=== PATIENT | female | born 1950 | race Caucasian/White ===

== ENCOUNTER 2017-07-28 17:00 | Emergency (ER) | payer MEDICARE, OTHER, MEDICAID ==
[~2017-07-28] VITALS: Ht 165.1 cm; Wt 75.0 kg
[~2017-07-28 17:00] MED LIST: NORCO 325 MG-101 TAB PO; NORCO 325 MG-51 TAB PO; ULTRAM 50MG TAB50 MG PO
[2017-07-28 17:04] VITALS: TEMP 97.2
[2017-07-28] MEDS ORDERED: PRINIVIL40 MG PO (17:36)
[2017-07-28] MEDS ORDERED: METHOTREXA2.5 MG/TAB PO (17:36)
[2017-07-28] MEDS ORDERED: FOLIC ACID800 MCG PO (17:36)
[2017-07-28] MEDS ORDERED: ZOCOR 20MG20 MG PO (17:36)
[2017-07-28] MEDS ORDERED: ADVIL200 MG PO (17:36)
[2017-07-28 17:54] LABS: COLLECTION METHOD CLEAN CATCH
[2017-07-28 17:55] LABS: BASO % 0.2 % (0.0-2.0); EOS # 0.1 (0.0-0.7); EOS % 0.4 % (0-4.0); GRAN # 12.7 (1.4-6.5); HEMATOCRIT 48.1 % (37.0-47.0); HEMOGLOBIN 16.4 g/dl (12.5-16.0); LYMPH # 1.6 (1.2-3.4); LYMPH % 10.1 % (20.0-51.0); MEAN CELL VOLUME 91 fl (80.0-100.0); MEAN CORPUSCULAR HEMOGLOBIN 31 pg (27.0-31.0); MEAN CORPUSCULAR HGB CONC 34 g/dl (33.0-37.0); MEAN PLATELET VOLUME 10.8 fl (7.4-10.4); MONO # 1.1 (0.1-0.6); PLATELET COUNT 322 K/mm3 (130-400); RED BLOOD COUNT 5.27 M/mm3 (4.10-5.30); REDCELL DISTRIBUTION WIDTH-CV 15.1 % (11.5-14.5)
[2017-07-28 18:10] LABS: MUCOUS Present /lpf; PH 5 (5-8); SQUAMOUS EPITHELIAL >50 /hpf; URINE APPEARANCE Turbid; URINE BACTERIA Many /hpf; URINE BILIRUBIN Negative (NEGATIVE); URINE BLOOD 1+ (NEGATIVE); URINE COLOR Yellow; URINE GLUCOSE Negative (NEGATIVE); URINE KETONE Trace (NEGATIVE); URINE LEUKOCYTE ESTERASE 2+ (NEGATIVE); URINE NITRATE Positive (NEGATIVE); URINE PROTEIN(semi-quant) 2+ (NEGATIVE)
[2017-07-28 18:13] LABS: ALANINE AMINOTRANSFERASE 20 U/L (9-52); ALBUMIN 4.4 gm/dL (3.5-5.0); ALKALINE PHOSPHATASE 129 U/L (50-136); ANION GAP 18 mmol/L (7-16); AST,SGOT 22 U/L (15-37); BILIRUBIN,TOTAL 0.9 mg/dL (0.0-1.0); BLOOD UREA NITROGEN 24 mg/dL (7-17); C-REACTIVE PROTEIN 6.9 mg/dL (0.0-0.9); CARBON DIOXIDE 20 mmol/L (22-30); CHLORIDE 105 mmol/L (98-107); GLUCOSE 177 mg/dL (74-106); POTASSIUM 4.3 mmol/L (3.4-5.0); SODIUM 143 mmol/L (137-145); TOTAL PROTEIN 9.5 gm/dL (6.4-8.2)
[2017-07-28 18:23] LABS: TROPONIN-I < 0.012 ng/mL (0.000-0.034)
[2017-07-28] MEDS ORDERED: OMNICEF 300MG300 MG PO (18:39)
[2017-07-28 18:57] VITALS: BP 130/107; PULSE 132
== END 2017-07-28 19:02 | disposition home or self-care (01) ==
LOC: COL.ER 17:00
PROVIDERS: Emergency Medicine
DX: N12 Tubulo-interstitial nephritis, not specified as acute or chronic (principal); N39.0 Urinary tract infection, site not specified; M54.5 Low back pain; M06.9 Rheumatoid arthritis, unspecified; F17.210 Nicotine dependence, cigarettes, uncomplicated
CPT/HCPCS: J0696; J1170

== ENCOUNTER 2019-06-23 10:37 | Inpatient (IN) | payer MEDICARE, OTHER ==
[~2019-06-23] VITALS: Ht 167.6 cm; Wt 54.5 kg
[~2019-06-23 10:37] MED LIST changes: +ADVIL200 MG PO; +FOLIC ACID800 MCG PO; +INCRUSE EL62.5 MCG/A IH; +IPRATROPIUM BROM3 M1 IH; +LEVAQUIN 5500 MG/TA1 PO; +LOVENOX 6060 MG/0.6 SQ; +METHOTREXA2.5 MG/TAB PO; +OMNICEF 300MG300 MG PO; +PRINIVIL40 MG PO; +RT ADVAIR HFA 1112 G IH; +TYLENOL 325MG325 MG PO; +ZOCOR 20MG20 MG PO
[2019-06-23 12:33] LABS: TROPONIN-I < 0.012 ng/mL (0.000-0.035)
[2019-06-23 14:01] LABS: BASO % 0.2 % (0.0-2.0); EOS % 0.3 % (0-4.0); GRAN # 7.8 (1.4-6.5); HEMATOCRIT 42.8 % (37.0-47.0); HEMOGLOBIN 13.2 g/dl (12.5-16.0); LYMPH # 0.7 (1.2-3.4); LYMPH % 7.6 % (20.0-51.0); MEAN CELL VOLUME 87 fl (80.0-100.0); MEAN CORPUSCULAR HEMOGLOBIN 27 pg (27.0-31.0); MEAN CORPUSCULAR HGB CONC 31 g/dl (33.0-37.0); MEAN PLATELET VOLUME 10.2 fl (7.4-10.4); MONO # 0.5 (0.1-0.6); MONO % 5.3 % (1.7-9.3); PLATELET COUNT 172 K/mm3 (130-400); RED BLOOD COUNT 4.92 M/mm3 (4.10-5.30); REDCELL DISTRIBUTION WIDTH-CV 20.2 % (11.5-14.5)
[2019-06-23 14:15] LABS: ALBUMIN 3.5 gm/dL (3.5-5.0); BILIRUBIN,TOTAL 0.6 mg/dL (0.0-1.0); C-REACTIVE PROTEIN 3.7 mg/dL (0.0-0.9); CREATININE, serum 0.43 (0.52-1.25); POTASSIUM 5.1 mmol/L (3.4-5.0)
--- NOTE | 2019-06-23 15:59 | NUR ---
tray line worker met with Dr Brooks and patient's nurse in the emergency room. Patient requires screening to determine competency/guardianship. Patient was recently hospitalized and transferred to [facility] for skilled care. On 06/22/2019, patient left [facility]. Worker spoke with Javy and also with Brigitte Pearson (APS [phone]) and advised that patient will be admitted and assessed by pyschiatrist on 06/24/2019 for guardianship need. Worker spoke with Nancy in Risk management regarding the above information. Worker spoke with Festus Anne [phone] regarding the above information. Festus states that patient has for sons and hasn't spoken to them in 25/30 years. Festus states they do not know were the sons are at this time. Festus states that he would be guardian if patient requires that and has tried to help patient pay her bills and clean up her home. Festus states that he found a package of raw chicken (that was 4 months old) on the floor in patient's living room. Festus states that patient's memory has deteriorated rapidly over the last year and that she was hoarding snack and canned foods. Worker spoke with Dr Scott's social economist, Rani, and advised of the above information.
[2019-06-23 17:23] LABS: PROTHROMBIN TIME 12.1 SECONDS (9.7-12.8)
--- NOTE | 2019-06-23 19:49 | NUR ---
patient is alert with mild confusion and incontinent at arrival to the floor. patient progress to be lethargic and [id number]. patient is currently on 2L Of O2. patient not able to answer most questions related to medication or past history. patient is currently resting in bed. ASSESSMENT coarse crackle lung sound, pulse lips when breathing. Heart rhythm is irregular. right ankle edema at 2+, left leg edema at 2+. patient complained of tiredness. patient is on high fall risk. Fall precautions in place. bed alarm on.
--- NOTE | 2019-06-23 20:00 | NUR ---
At time of assessment, patient is lying in bed. She moans and complains of "pain all over". Tylenol administered. Heart sounds are irregular, lung sounds are coarse. Patient is on 2L oxygen at this time. No edema. Will continue to monitor.
[2019-06-23 20:52] VITALS: BP 127/63; PULSE 89; TEMP 97.5
[2019-06-24 00:15] VITALS: BP 132/69; PULSE 93; TEMP 97.4
--- NOTE | 2019-06-24 05:52 | NUR ---
Patient has slept throughout the majority of the night. She complained of pain "all over" at beginning of shift and Tylenol seemed to help this issue. She woke up once in the middle of the night saying she was hungry and requested chocolate ice cream. Today we are waiting for placement and possible guardianship from social work consult. No further concerns. Will continue to monitor.
[2019-06-24 07:22] VITALS: BP 121/67; PULSE 99; TEMP 97.6
[2019-06-24 08:49] LABS: BASO % 0.3 % (0.0-2.0); EOS # 0.1 (0.0-0.7); EOS % 1.9 % (0-4.0); GRAN % 81.3 % (42.2-75.2); HEMATOCRIT 39.9 % (37.0-47.0); LYMPH # 0.7 (1.2-3.4); LYMPH % 11.2 % (20.0-51.0); MEAN CELL VOLUME 87 fl (80.0-100.0); MEAN CORPUSCULAR HEMOGLOBIN 26 pg (27.0-31.0); MEAN CORPUSCULAR HGB CONC 30 g/dl (33.0-37.0); MEAN PLATELET VOLUME 10.3 fl (7.4-10.4); MONO # 0.3 (0.1-0.6); PLATELET COUNT 168 K/mm3 (130-400); RED BLOOD COUNT 4.58 M/mm3 (4.10-5.30); REDCELL DISTRIBUTION WIDTH-CV 19.9 % (11.5-14.5)
[2019-06-24 09:17] LABS: CALCIUM 8.8 mg/dL (8.4-10.2); CREATININE, serum 0.42 (0.52-1.25); POTASSIUM 4.6 mmol/L (3.4-5.0)
--- NOTE | 2019-06-24 10:17 | NUR ---
Pt assessment completed and charted, medications administered per MAY. Pt is sitting in bed, alert, partially oriented. Pt has LH IV w/ NS @75ml/hr running w/o complications. PT to be on 1.5-2L NC, pt needs reminder to put NC in, pt refusing at time of assessment. Breathing is even and unlabored at this time. LLE edema 1-2+ and Lt foot edema 2-3+, some warmth noted. Irritation and scabs present to LLE. Rt foot 1-2+ edema noted. Pt states she is hungry, no diet order in at this time, will discuss with hospitalist. No furthe needs at this time.
--- NOTE | 2019-06-24 11:07 | NUR ---
First visit from the department store manager. No needs right now.
[2019-06-24 12:03] VITALS: BP 116/64; PULSE 92; TEMP 97.5
--- NOTE | 2019-06-24 13:33 | NUR ---
RA SPO2 82% PLACED BCK ON 2 LPM NC 90% RN NOTIFIED
[2019-06-24 16:11] VITALS: BP 124/69; PULSE 96; TEMP 97.7
--- NOTE | 2019-06-24 16:30 | NUR ---
Vocational Nurse faxed referrals to [facility], [facility], [facility], and [facility]. SW spoke with Kimberly at [facility] who advised they only have one bed available at this time. SW to continue to follow.
--- NOTE | 2019-06-24 16:34 | NUR ---
Architectural Associate collaborated with Rosa, Financial Counselor about Medicaid Jarrod for patient. SW to continue to follow.
--- NOTE | 2019-06-24 17:02 | NUR ---
Pt states she is hungry, offered snacks until dinner arrives. Pt has moaned most of the day but can't describe or rate pain. When asked what's wrong, pt states she is "miserable". Throughout day pt has denied the need for pain medication. Pt then stated she "hurt all over", tylenol was offered, pt accepted. Pt on room air, satting low 90s. Pt checked by RT earlier this afternoon, found in upper 80s, NC placed back on and sats brought up to low 90s. Pt constantly takes NC off. Discussed w/ pt about keeping on NC.
--- NOTE | 2019-06-24 17:40 | NUR ---
Pt assisted to bathroom, pt called out "help". Pt reminded to use call light. Upon returning back to bed, pt stated she was "couldn't breathe". Educated pt on keeping NC in, O2 checked, pt was satting at 88%, quickly recovered to 91% on 2L NC.
--- NOTE | 2019-06-24 19:00 | NUR ---
Received report from Dawn. Seen patient awake, lying on bed. With IV on left wrist infusing NS at 75ml/hr. Patient refuses to wear her oxygen and states she doesn't need it. SPO2 at 93% room air. Bed alarm on. Call light within reach.
[2019-06-24 19:05] VITALS: BP 116/50; PULSE 85; TEMP 98
--- NOTE | 2019-06-24 19:45 | NUR ---
Patient states she is hungry and said that she didn't receive her tray even if she had it awhile ago. Camillus box was given and she was able to eat most of it. She says she has pain all over and this nurse tells her she can have the Tylenol at 2030H and she agreed. She is oriented to place, year but not the current date right now. She knows when is her birthday.
[2019-06-24 22:58] VITALS: BP 130/66; PULSE 99; TEMP 97.8
[2019-06-25 03:09] VITALS: BP 122/45; PULSE 85; TEMP 98.3
--- NOTE | 2019-06-25 06:18 | NUR ---
Patient would wake up and scream she needs help. Upon going inside she would say she needs to go the the restroom to urinate. This nurse instructed her a couple times to use the call light is she needs something and she would say okay but she wouldn't do it. She keeps on saying she feels horrible. She had pain last night and she would say it's all over her body. Tylenol PRN was given. Will endorse to day shift nurse.
[2019-06-25 07:09] VITALS: BP 134/69; PULSE 100; TEMP 97.4
--- NOTE | 2019-06-25 10:36 | NUR ---
Station Worker faxed referrals to [facility] [place] and [place]. SW spoke with patient's friend, Festus who reports he is still willing to be appointed patient's guardian. Festus reports patient owns the trailer she lives in and an old truck. Festus estimated she receives about $2,100 per month in social security. SW to continue to follow.
[2019-06-25 11:44] VITALS: BP 128/65; PULSE 100; TEMP 97.8
--- NOTE | 2019-06-25 12:15 | NUR ---
Tele called, pt HR increased to 130s, this nurse checked on pt, pt sitting in bed eating lunch, denies any needs at this time. HR back down to low 100s.
--- NOTE | 2019-06-25 12:17 | NUR ---
Pt VS verified, pt satting at 89 on room air. Pt not wearing her O2. Pt educated again on importance of wearing O2. Pt needs constant reminder to keep O2 on and she repeatedly removes it. Will continue to monitor.
--- NOTE | 2019-06-25 14:55 | NUR ---
JUANITO faxed updates to [facility], [facility], and [facility].
--- NOTE | 2019-06-25 15:25 | NUR ---
Pt assessment completed and charted and medications administered per MAY. Pt is alert, partially oriented. Pt tolerating foods ok. Pt has needed multiple reminders to put O2 back on. Pt drops to high 80s but recovers quickly on 2L NC. Pt also needs reminders and education on using call lights repeatedly, pt verbalizes understanding but then just yells out. Pt also puts side rails down on her own. Bed alarm on, fall risk precautions in place. IVF dc'd, pt has LWR IV that flushes w/o difficulty. LLE edema 2+, Lt foot edema 3+. Pt moans that she "hurts all over" but then states she "is ok" and refuses anything for pain. Pt has been assisted to bathrooom multiple times, gait is fairly steady using walker. No other concerns expressed.
[2019-06-25 15:46] VITALS: BP 132/51; PULSE 93; TEMP 97.4
--- NOTE | 2019-06-25 16:07 | NUR ---
Javy, at [facility], reports that they have declined the patient, due to her leaving AMA her last stay.
--- NOTE | 2019-06-25 19:00 | NUR ---
Received report from Obinna. Seen patient asleep, lying in bed. With INT on left wrist. On O2 at 2lpm via NC. Will continue to monitor.
[2019-06-25 19:17] VITALS: BP 127/58; PULSE 93; TEMP 98.4
[2019-06-25 23:45] VITALS: BP 133/54; PULSE 88; TEMP 98.7
[2019-06-26] VITALS (7 sets, daily range): BP systolic 112–143; BP diastolic 47–86; PULSE 94–112; TEMP 97.5–98.7
--- NOTE | 2019-06-26 01:25 | NUR ---
Noted to have some bleeding on the IV site. Tried flushing the INT but there's no backflow and patient complains of pain. Removed INT. Explained to patient that this nurse needs to insert another IV access but patient refuses. She kept on hiding her hands and says she doesn't need another IV. Informed VETERINARIAN POULTRY Anitha that patient refuses for IV access.
--- NOTE | 2019-06-26 05:35 | NUR ---
Patient had an uneventful night. She was aleep most of the night. She just asked for a sandwich in the middle of the night when her IV was out. Will endorse to day shift nurse.
[2019-06-26 06:55] LABS: BASO % 0.3 % (0.0-2.0); EOS # 0.1 (0.0-0.7); EOS % 1.6 % (0-4.0); GRAN # 5.1 (1.4-6.5); GRAN % 74.2 % (42.2-75.2); HEMATOCRIT 40.3 % (37.0-47.0); HEMOGLOBIN 12.3 g/dl (12.5-16.0); LYMPH # 1.2 (1.2-3.4); LYMPH % 17.6 % (20.0-51.0); MEAN CELL VOLUME 88 fl (80.0-100.0); MEAN CORPUSCULAR HEMOGLOBIN 27 pg (27.0-31.0); MEAN CORPUSCULAR HGB CONC 31 g/dl (33.0-37.0); MEAN PLATELET VOLUME 10.1 fl (7.4-10.4); MONO # 0.4 (0.1-0.6); MONO % 5.9 % (1.7-9.3); PLATELET COUNT 201 K/mm3 (130-400); REDCELL DISTRIBUTION WIDTH-CV 19.6 % (11.5-14.5)
[2019-06-26 07:03] LABS: CALCIUM 8.9 mg/dL (8.4-10.2); CREATININE, serum 0.5 (0.52-1.25); POTASSIUM 4.5 mmol/L (3.4-5.0)
--- NOTE | 2019-06-26 07:25 | NUR ---
On 06/25/2019, social worker assistant spoke with [place] associate attorney, Brandon Ayala, and advised of current situation and need for emergency guardian for placement. Will plan to complete questionnaire and collaborate with attorneys.
--- NOTE | 2019-06-26 08:34 | NUR ---
PT REFUSED [place]
--- NOTE | 2019-06-26 08:36 | NUR ---
[facility], [facility], and [facility] declined referral at this time. SW to continue to follow.
--- NOTE | 2019-06-26 09:04 | NUR ---
Pt assessment completed and charted. medication administered per MAY. Pt is A&O, impulsive. Pt has bed alarm on and fall precautions in place but pt will lower side rail and get up on own w/o using call light. Pt educated on use of call light and waiting for help. Pt O2 sats upper 80s this morning. Pt didn't have NC on, educated on need to keep O2 on. Pt was agreeable but needs constant reminder and education. Pt is on 2L NC. Pt doesn't not have IV access, IV removed last night and pt refused. Will attempt to gain IV access today, pt does not receive IV meds but is on tele. Pt has LLE 2-3+ edema and rt ankle 1+ edema. Pt denies any pain but states she is miserable, denies need for any pain medication.
--- NOTE | 2019-06-26 12:42 | NUR ---
Supervisor Inspection Department spoke with JUANITO Mcghee at [facility] who advised they are required to have a negative COVID19 test prior to admit. JUANITO advised that a test would not be done as patient is not under suspect for COVID19. JUANITO collaborated with Rosa, Financial Counselor who advised a Medicaid application had been started last year but patient did not follow through with providing medical documents. Rosa advised she may need to wait until Guardian is established to complete new Medicaid application. JUANITO completed Guardianship Questionnaire with information gathered from hospital records and patient's friend, Festus. JUANITO to continue to follow.
--- NOTE | 2019-06-26 13:36 | NUR ---
neon sign worker sent guardianship questionnaire to attorneys, [place] and [place].
--- NOTE | 2019-06-26 14:00 | NUR ---
Pt to have Ct w/ contrast, new IV site needed and started to RAC by JORGE Barrett flushhanna w/o difficulty and blood return noted. No further needs. Pt requesting lunch, provided with sandwich box at this time.
--- NOTE | 2019-06-26 16:03 | NUR ---
President & Ceo [employer] contacted and faxed referral to [facility], [facility], and [facility]. JUANITO also faxed referral to [facility] in [place] and left a message for Amy. JUANITO SOLOMON to continue to follow.
--- NOTE | 2019-06-26 16:04 | NUR ---
SW obtained Physician Report form from Hospitalist required for Guardianship and provided it along with patient's Psychiatry Consult to Nancy Peng, Drier Transfer Car Operator.
--- NOTE | 2019-06-26 16:21 | NUR ---
Pt assisted to bathroom, refuses to press call light. Bed alarm on. Pt not wearing her O2. VSS obtained, pt satting at 85%, quickly recovered to mid 90s with O2 on. Pt states she is "miserable" but "nothing hurts". Denies need for any pain medication. Pt also states she is hungry, provided with snacks. No further needs at this time. Call light within reach and bed alarm on.
--- NOTE | 2019-06-26 17:40 | NUR ---
Pt found without O2 on, educated patient on wearing O2 again. O2 placed back on. No further needs.
--- NOTE | 2019-06-26 18:30 | NUR ---
PT REPORT RECEIVED FROM SATISH RN AT BEDSIDE. PT IS RESTING IN BED WITH CALL LIGHT WITHIN REACH. WILL CONTINUE TO MONITOR.
--- NOTE | 2019-06-26 21:29 | NUR ---
Pt is noted to be getting out of bed with bed alarm sounding. Pt educated on using call light to notify staff of her needs to reduce thwerisk of falls and injury. Pt seems to disregard the education provided. Bed alarm on. Will continue to monitor.
--- NOTE | 2019-06-26 22:38 | NUR ---
PATIENT REFUSED TREATMENT
--- NOTE | 2019-06-27 03:23 | NUR ---
Pt has had increased restfulness during the latter part of the shift and Charge Nurse Shanique PATEL was able to get Pt to take PRN APAP earlier which may have helped reduce PT restlessness and verbal pain sounds. Pt alternates between resting with her eyes open and closed with no s/s of distress noted. Pt continues to have call light within reach. New order received from Dr Resendiz for 2mg Morphine IV One Time and to save this PRN dose until Pt pain has exacerbated to an appropriate level based upon this typewriters functional tester's nursing assessment- otherwise continue to use APAP when available. Will continue to monitor.
[2019-06-27 03:48] VITALS: BP 127/67; PULSE 101; TEMP 98.4
--- NOTE | 2019-06-27 05:59 | NUR ---
Pt was assisted to restroom and is currently back in bed resting peacefully with no s/s of distress noted. Call light within reach. Will continue to monitor. Pt has not needed the new order for Morphine 2mg IV One Time PRN since the order was received earlier in the shift.
[2019-06-27 07:27] VITALS: BP 109/56; PULSE 98; TEMP 97.6
[2019-06-27 11:37] VITALS: BP 111/68; PULSE 104; TEMP 97.5
--- NOTE | 2019-06-27 14:51 | NUR ---
PT C/O FEELING HORRIBLE AND AND ACHEY, THIS NURSE PROVIDED PT WITH SOME TYLENOL, PT REFUSED TO TAKE IT. HAS HAD A FEW BM'S TODAY AND REFUSED HER MIRALX AND COLACE THIS AM.
[2019-06-27 16:02] VITALS: BP 117/59; PULSE 104; TEMP 98.1
--- NOTE | 2019-06-27 16:22 | NUR ---
PT FINALLY DID TAKE SOME TYLENOL THIS AFTERNOON. WILL MONITOR FOR EFFECTIVENESS
[2019-06-27 19:14] VITALS: BP 116/60; PULSE 98; TEMP 98.6
--- NOTE | 2019-06-27 20:25 | NUR ---
Patient assessed at this time. Alert and oriented with confusion. Reports pain all over, but refusing to take Acetaminophen as ordered, stating she doesn't need it. Peripheral IV to right AC. Patient on oxygen at 2 L/min via NC. Does not keep oxygen on, and staff have to reeducate and assist with putting oxygen back on. Patient continues to take it off saying she doesn't need it. Patient has labored breathing with any exertion. Respirations shallow. LS CTA in upper lobes, diminished in lower. HRR. Telemetry in place: sinus tachycardia. Capillary refill less than 3 seconds. Non-tenting skin turgor. BSAx4. Abdomen soft and non-tender. 2+ edema LLE and left foot. Voices no questions, needs or concerns. States she is tired and wants to sleep. Call light is within reach. High fall risk precautions in place.
--- NOTE | 2019-06-27 21:43 | NUR ---
Patient continueing to yell out saying she is hurting. This nurse went and talked with patient. Patient stated she would take Acetaminophen. Given to patient, but then refused to take it. This nurse stayed and talked with patient for a while. She stated she was miserable. Asked why she was miserable, and stated that she is hurting all over. Again, offered to give her the Acetaminophen, and told her that it was at least worth a try to see if it helps. Patient then agreeable, and did take medication.
[2019-06-27 23:53] VITALS: BP 121/44; PULSE 86; TEMP 98.7
[2019-06-28 04:16] VITALS: BP 130/49; PULSE 89; TEMP 98.1
--- NOTE | 2019-06-28 05:09 | NUR ---
Patient received PRN APAP around 2139 last night. Has slept more tonight than previous night. Does continue to yell out on occasion, "oh my god," "I'm miserable," etc. Tried to encourage to take more APAP, but refuses to take it, saying "its not bad." Patient given snacks as requested during the night. Patient keeps taking oxygen off as well, and needs lots of encouragement to keep it on. High fall risk precautions remain in place.
[2019-06-28 07:51] VITALS: BP 133/63; PULSE 106; TEMP 97.7
[2019-06-28 12:40] VITALS: BP 130/57; PULSE 106; TEMP 98
[2019-06-28 16:45] VITALS: BP 121/56; PULSE 101; TEMP 97.4
--- NOTE | 2019-06-28 18:40 | NUR ---
Pt report received from Carli PATEL/Tita RN at bedside. Pt is resting in bed with eyes closed and no s/s of distress noted. Call light is at Pt side. Will continue to monitor.
[2019-06-28 20:17] VITALS: BP 117/52; PULSE 96; TEMP 97.8
--- NOTE | 2019-06-28 21:21 | NUR ---
Pt pulled out her IV line again. This service writer contacted Lolita WAYNE and received order to Discontinue IV. Will continue to monitor.
--- NOTE | 2019-06-28 23:05 | NUR ---
Pt set bed alarm off and was fouind in the restroom sitting on the toilet. Pt states that she had to immediately void and could not wait for assistance. Pt reports that her brief is wet. This keno writer/runner assists Pt with cleaning herself up and provided new clean brief, assisted Pt back to bed and resets the bed alarm. Pt remains in stable condition at this time with continued complaints regarding how she doesn't feel good. Pt educated that there is PRN APAP available and Pt agrees that she would take some APAP as soon as it can be given. MAR verified and APAP will be given per MAR. Call light within reach. Will continue to monitor.
--- NOTE | 2019-06-28 23:12 | NUR ---
Pt provided PRN APAP and this greeting card writer verified that Pt would take the pills if they were popped from packaging. Pt now states "no" and "leave me alone" even after edcuation regarding how this medication can help relieve or reduce her pain and discomfort. Pt replies "leave me alone". Meds [facility] to [facility]. Call light within reach. Will continue to monitor.
[2019-06-28 23:52] VITALS: BP 126/70; PULSE 97; TEMP 97.7
--- NOTE | 2019-06-28 23:55 | NUR ---
Pt refuses to wear her O2 per NC
--- NOTE | 2019-06-29 01:53 | NUR ---
Pt has once again transferred out of bed without using call light and triggering bed alarm. Pt presents at bedside and states she needs to use the restroom. This board writer assists Pt with toileting needs and then assists Pt back to bed. Pt once again reducated on her fall risk secondary to pain, weakness, and altered gait, and that she needs to use the call light so staff can assist her to the restroom safely. Pt is ambivalent about the education and appears to not even be paying attention. Pt is moaning and making statements about pain but consistently refuses the pain medication that she has ordered PRN. Call light at Pt side and bed alarm reset. Will continue to monitor.
[2019-06-29 04:16] VITALS: BP 152/56; PULSE 115; TEMP 98.8
--- NOTE | 2019-06-29 04:31 | NUR ---
Pt woke up and called out in pain as this medical technical writer was preparing to go to her room for VS and rounds. Pt assisted to restroom by estivensi medical technical writer after VS taken. Pt states "it hurts" numerous times and makes pain sounds but when reminded that she has PRN pain medication available she once again refuses the medication. Pt assisted back to bed and repositioned into a comfortable position. Just prior to Pt waking up biologist aide notified this medical technical writer that Pt HR was elevated in the 110-120's. Pt is possibly tachycardic D/T pain and discomfort and remains in NSR at this time. Call light within reach, Pt educated that if she decides to take th epain medication to let this medical technical writer know by using call light and this medical technical writer will immediately retrieve her pain medication. Currently Pt can be heard calling out from her room "it hurts" and "God it hurts" but consistently refuses to take pain medication throughout the entire shift so far. Will continue to monitor.
--- NOTE | 2019-06-29 07:19 | NUR ---
Pt report given to Aylin PATEL at bedside. Pt resting in bed peacefully with eyes closed.
[2019-06-29 08:01] VITALS: BP 118/55; PULSE 110; TEMP 97.6
--- NOTE | 2019-06-29 08:04 | NUR ---
Assessment complete. Patient sitting up in bed with breakfast. She refused all stool softeners but took xarleto. She is aware of the swelling in her left leg but could not remember why it is there. Stated there was not pain or tenderness in that extremity. She is alert and oriented the only question she could not answer was who the preseident was. She denies pain at this time. She states that she is "miserable" but denies pain and states that she "just does not feel good. No IV access at this time, okay per PA. No other needs were expressed at this time. Call light is in reach.
--- NOTE | 2019-06-29 09:08 | NUR ---
Loose Hand Packer spoke with Priscilla at [facility] who advised that they would not be able to accept referral due to concerns for non-compliance. Priscilla advised they may be able to reconsider if patient pursues palliative care. JUANITO spoke with Britni at [facility] who reports they are likely able to accept once Medicaid has been applied for. Britni reports they will require a copy of patient's Medicaid application in order to accept. JUANITO to continue to follow.
--- NOTE | 2019-06-29 11:06 | NUR ---
Pt has gotten out of bed twie on her own triggering the bed alarm to go to the restroom. I continue to remind her that she needs to call before she gets up to make sure she does not fall and she agrees, but continues to get up with out calling. When she does get up she walks well sometimes she grabs the walker other times she does not. She is relatively steady while walking but one should standby in case of needed assistance
--- NOTE | 2019-06-29 11:43 | NUR ---
Bill Peddler met with patient to inquire about photo ID and Social Security Card. Patient is unsure where these are located but states SW can look in her wallet. SW located ID but not her SS Card. JUANITO provided ID to JUANITO Landry who will pass along to attorneys working to establish guardianship. SW to continue to follow.
[2019-06-29 12:02] VITALS: BP 119/58; PULSE 107; TEMP 97.5
--- NOTE | 2019-06-29 12:07 | NUR ---
Pt continues to refuse nasal canula for oxygen therapy
--- NOTE | 2019-06-29 12:45 | NUR ---
[facility] declined referral as they feel at this time they cannot meet patient's needs. SW to continue to follow.
--- NOTE | 2019-06-29 13:15 | NUR ---
Pt got out of bed setting off bed alarm in order to go to the restroom again. Used the walker with my assistance to get back into bed. Pt described pain at a 6 out of 10 and stated "I am just miserable" I offered her some tylenol and she stated she would like that. She did accept and take the PO tylenol. Will continue to monitor her pain throughout the day.
--- NOTE | 2019-06-29 14:44 | NUR ---
Networks Computer Consultant spoke with Litzy SOLOMON and Angie ADHIKARI at [facility] about referral. Previously they had advised a negative COVID19 screen would be required prior to admit. Angie reports they would not need this but will need to obtain additional information from [facility], where patient left AMA from. Angie advised they will continue to screen referral. JUANITO to continue to follow.
[2019-06-29 15:33] VITALS: BP 129/59; PULSE 98; TEMP 98
--- NOTE | 2019-06-29 17:38 | NUR ---
Aside from getting out of bed without assistance pt has a good day. She constantly complains of "being miserable" but denies pain. She took PRN tylenol for me once. Pain seems to be exacerbated by movement while ambulating. She had many snacks through out the day and often states that she is hungry. No changes during this day. Call light is in reach.
[2019-06-29 19:31] VITALS: BP 124/58; PULSE 97; TEMP 97.4
--- NOTE | 2019-06-29 20:32 | NUR ---
ASSESSMENT COMPLETE. RESTING IN BED. C/O OF "FEEL AWFUL". UNABLE TO BE SPECIFIC ABOUT WHAT IS THE SOURCE OR HER DISCOMFORT. REPLIED THAT SHE IS HAVING PAIN, AGAIN UNABLE TO DESCRIBE. DENIES OTHER CONCERNS AT THIS TIME. PAIN MEDICATION OFFERED.
--- NOTE | 2019-06-29 20:49 | NUR ---
REFUSED PAIN MEDICATION.
[2019-06-29 23:13] VITALS: BP 129/58; PULSE 98; TEMP 97.4
--- NOTE | 2019-06-29 23:54 | NUR ---
c/o generalized discomfort. PRN acetaminophen offered and accepted.
[2019-06-30 03:10] VITALS: BP 110/53; PULSE 96; TEMP 98.2
[2019-06-30 06:52] VITALS: BP 111/50; PULSE 93; TEMP 97.6
[2019-06-30 11:54] VITALS: BP 113/65; PULSE 96; TEMP 97.8
--- NOTE | 2019-06-30 14:30 | NUR ---
Field Service Engineer met with Festus, pending Guardian and Rosa, Financial Counselor so that Festus can sign court documents and Medicaid Application. JUANITO will fax Medicaid Jarrod to [facility] and [facility] once received. JUANITO faxed COVID screen to Hemal at [facility]. JUANITO to continue to follow.
[2019-06-30 16:04] VITALS: BP 109/50; PULSE 94; TEMP 98.5
--- NOTE | 2019-06-30 18:13 | NUR ---
PT HAD UNEVENTFUL DAY. ALTHOUGH PT HAS BEEN GETTING UP THIS SHIFT WITHOUT CALLING FOR ASSISTANCE. DENIED NEEDS FOR ANY PAIN MEDS THIS SHIFT. ATE WELL EACH MEAL AND C/O HUNGER PRIOR TO NEXT MEAL ARRIVING.
[2019-06-30 20:29] VITALS: BP 116/66; PULSE 103; TEMP 97.5
--- NOTE | 2019-06-30 22:02 | NUR ---
Received report from JORGE Estrada. Alert and oriented. Pt laying in bed watching TV. Denies any pain or discomfort at this time. Pt refuses to wear O2NC. Denies SOB. Snacks provided to pt as requested. LLE 3+edema with slight pain, pt refused pain meds at this time. Needs met at this time. Call light within reach.
--- NOTE | 2019-06-30 22:29 | NUR ---
Pt voiced "help." Pt states, "I'm miserable." Offered pain meds, pt refused. Pt then says, "I'm hungry." [place] box provided to pt. Pt thankful. Informed pt to use call light for needs. Call light within reach.
[2019-06-30 23:20] VITALS: BP 125/62; PULSE 102; TEMP 97.9
--- NOTE | 2019-06-30 23:31 | NUR ---
Standby assist using walker to BR. Pt states she hurts all over, offered tylenol but pt refused. Made pt comfortable in bed. Pt continues to verbalized, " I'm miserable." I offered tylenol again and pt accepted. PRN tylenol administered. Call light within reach. Bed alarm set.
[2019-07-01 03:55] VITALS: BP 127/63; PULSE 99; TEMP 97.6
--- NOTE | 2019-07-01 07:00 | NUR ---
Report given to JORGE Estrada.
[2019-07-01 07:28] VITALS: BP 104/50; PULSE 88; TEMP 97.7
--- NOTE | 2019-07-01 10:47 | NUR ---
Director Engineering faxed updates to Danay [facility], [facility] [employer], and [employer]. SW collaborated with JORGE Huff about palliative consult. SW to continue to follow.
[2019-07-01 11:52] VITALS: BP 115/68; PULSE 98; TEMP 97.8
--- NOTE | 2019-07-01 13:48 | NUR ---
Attempted to call friend Festus Omid to initiate pallaitve care consult but he was not available so a voice message was left. Will continue to try to contact later today/tomorrow.
[2019-07-01 15:11] VITALS: BP 118/59; PULSE 90; TEMP 97.7
--- NOTE | 2019-07-01 15:13 | NUR ---
Manufacturing Analyst and Daria Palliative RN attempted to contact Festus, pending Guardian. SW to continue to follow.
--- NOTE | 2019-07-01 16:43 | NUR ---
Employment Evaluator/Case Manager received Guardianship documents for patient and faxed them to Danay [facility] [place], [place], [facility], and [facility]. SW placed documents in patient's chart.
--- NOTE | 2019-07-01 18:32 | NUR ---
PT HAD UNEVENTFUL DAY. HAS NEEDED SOME TYLENOL THIS SHIFT, ONLY WANTED ONE 325MG TYLENOL, ADMINSTERED. NO OTHER NEEDS VOICED.
[2019-07-01 19:22] VITALS: BP 113/65; PULSE 103; TEMP 97.9
--- NOTE | 2019-07-01 20:00 | NUR ---
Received report from JORGE Estrada. Alert and oriented. Voices "I hurt," "I'm miserable." States she hurts all over. PRN Tylenol offered but pt refused. Informed pt to notify staff of need for prn tylenol. Call light within reach.
[2019-07-01 23:23] VITALS: BP 115/55; PULSE 97; TEMP 97.9
--- NOTE | 2019-07-02 02:05 | NUR ---
Pt got out of bed to use BR. Assisted pt back to bed using walker. Pt continues to voice "Help," "I'm miserable," "I hurt," "I feel sick." asked pt where her pain is, pt denies and denied any meds at this time. pt back to bed. Bed alarm set. Call light within reach.
[2019-07-02 03:29] VITALS: BP 138/55; PULSE 108; TEMP 98
--- NOTE | 2019-07-02 05:46 | NUR ---
Pt got out of bed multiple times throughout this shift to use the BR. Assisted pt back to bed using walker. Pt refused PRN Tylenol when she voiced she was in pain and feeling miserable. Refused other interventions to help alleviate discomfort. Call light within reach.
--- NOTE | 2019-07-02 06:55 | NUR ---
Report given to JORGE Seymour.
[2019-07-02 07:24] VITALS: BP 122/66; PULSE 101; TEMP 98.2
--- NOTE | 2019-07-02 08:33 | NUR ---
Pt assessment completed and charted. Medication administered per MAY. Pt currently on room air, satting ok, breathing is even and unlabored at this time. Pt not on tele and does not have IV site. Pt denies any pain, states she "is miserable all over". Lt ankle/foot edema has improved, 1-2+, tenderness noted. No other concerns expressed at this time. Pt educated on using call light.
--- NOTE | 2019-07-02 09:57 | NUR ---
[place] social worker masters and I talked with Festus Anne by phone and revewed the serious nature and poor prognosis that Randa has based on her lung tumor, Ct results highly suggesting metastatic disease, Hep C, COPD and her poor mental processing. Festus has been trying to support her but she has not always cooperated with him. He is being appointed her guardian now and will be her decisionmaker. He does recognize the seriousness of her situation but states he needs some time to process all of this as he had a similar experience with his . Support provided and we will talk with him later.
--- NOTE | 2019-07-02 10:31 | NUR ---
painting worker met with patient and presented Petition and Order for Guardianship and Conservatorship. Worker facilitated Zoom video conference between patient and appointed research attorney, Eliel Xie. Patient told Eliel that she wanted Festus Anne to act as her guardian and conservator. Case management social workers will continue to secure nursing facility placement for patient.
[2019-07-02 11:17] VITALS: BP 109/49; PULSE 97; TEMP 98.5
--- NOTE | 2019-07-02 12:53 | NUR ---
Pt was satting in mid 80s for noon vitals, placed on 1L NC, up to 90%. O2 bumped up to 2L NC. Will continue to monitor.
--- NOTE | 2019-07-02 14:54 | NUR ---
Technical Systems Architect contacted Festus with Palliative RN, Daria. See note for additional details. Festus is considering hospice care for patient and would like for her to go to [facility] if possible as it is local. Festus reports he has been in contact with Hemal at [facility] and with Walker Peña, Rotary Veneer Machine Operator. Festus reports he has provided Walker with permission to do what's necessary to spend down patient's resources so she can qualify for Medicaid, which is needed for placement. JUANITO collaborated with Walker who reports plans to spend down patient's resources then will provide updated bank statement so Medicaid application can be completed. JUANITO provided update to Rosa, Financial Counselor. JUANITO contacted Hemal at [facility] who reported they are likely able to accept pending Medicaid application. [facility] will require copy of Medicaid Application to review prior to accepting. JUANITO provided update to ELE Heredia. JUANITO to continue to follow.
[2019-07-02 15:28] VITALS: BP 97/62; PULSE 110; TEMP 98.5
--- NOTE | 2019-07-02 17:30 | NUR ---
Pt has had uneventful day. Denies pain, states she is "miserable", denies need for any thing for pain. Pt on fall precautions but has steady gait, needs constant reminder and education on using call light. Pt refuses O2 at this time and won't keep NC in. No further needs.
--- NOTE | 2019-07-02 19:00 | NUR ---
Received report from Dawn. Patient is awake, lying on bed. Denies any pain. No IV, no telemetry. Will continue to monitor.
[2019-07-02 19:01] VITALS: BP 113/57; PULSE 86; TEMP 97.6
[2019-07-03 00:43] VITALS: BP 114/48; PULSE 109; TEMP 97.6
--- NOTE | 2019-07-03 03:00 | NUR ---
Assisted patient to the restroom and states that she's in pain. This nurse asked her if she wants pain meds and she said yes. After getting the Tylenol patient says she doesn't want it.
[2019-07-03 04:48] VITALS: BP 109/53; PULSE 98
--- NOTE | 2019-07-03 05:29 | NUR ---
Patient is not wearing her nasal cannula. Rechecked SPO2 and instructed patient to put on her nasal cannula. SPO2 at 93% on O2 at 2lpm.
--- NOTE | 2019-07-03 08:09 | NUR ---
HANNAH note: PT AO to pers/place. denies pain but moaning. continent with formed BM this AM. no new concerns at this time
[2019-07-03 08:48] VITALS: BP 103/68; PULSE 108; TEMP 97.4
[2019-07-03 12:04] VITALS: BP 114/66; PULSE 104; TEMP 98.3
--- NOTE | 2019-07-03 12:59 | NUR ---
Drill Grinder spoke with Walker Peña, Toll Mechanic who is currently at patient's bank. Walker would like to be contacted by [facility] [employer] to talk about paying for a month in advance in order to spend down patient's resources. JUANITO contacted Hemal at [facility] who contacted Walker then followed up again with JUANITO. Hemal advised they are good to accept patient and could potentially admit her today if they can get a copy of Medicaid application confirmation. JUANITO collaborated with Rosa who will apply for Medicaid once Walker provides the needed documentation. JUANITO collaborated with ELE Mchugh who advised Festus wants to keep patient comfortable and is agreeable to discharging patient to [facility] on Hospice. JUANITO contacted Festus who selected [facility]. JUANITO contacted [facility] and faxed referral. JUANITO notified Hemal that Festus selected [facility]. SW To continue to follow.
--- NOTE | 2019-07-03 13:31 | NUR ---
BEHAVIORAL NOTE: PT STATED SHE WAS IN A LOT OF PAIN 10 CURRENTLY AND ASKED FOR TYLENOL. MEDICATION WAS BROUGHT TO BEDSIDE <5 MINS LATER THEN PT ASKED "WHAT IS THIS". WHEN NURSE EXPLAINED IT WAS THE TYLENOL SHE HAD ASKED FOR, THE PT TOOK PILL IN HAND AND PRETENDED TO TAKE THEM BY BRINGING HAND TO MOUTH, SIPPING WATER AND THEN STICKING TONGUE OUT BUT INSTEAD HID THEM IN HAND. WHEN CONFRONTED ABOUT FOLDED PALM, PT BECAME AGGITATED AND STATED "LEAVE ME ALONE". ADVICED BY NURSE THAT IF SHE REQUESTS MEDICATION AND CHANGES HER MIND SHE SHOULDNT FEEL THE NEED TO HIDE AND PRETEND TO INGEST. PT THEN SWALLOWED ONE OF THE PILLS AND SAID IT WAS ENOUGH. PT WAS ASKED TO PLACE NASAL CANULA ON SINCE OXYGEN WAS 89% AND SHE IS COMPLIANT AT THIS TIME. WAS PREVIOUSLY COMPLIANT BUT REMOVED IT FROM NARES WITHIN 20 MINS OF PUTTING IT ON.
[2019-07-03] MEDS ORDERED: TRANSDERM-0.5 MG/21 TD (14:38)
[2019-07-03] MEDS ORDERED: DULCOLAX S10 MG/SUPP RC (14:38)
[2019-07-03] MEDS ORDERED: XARELTO20 MG PO (14:41)
[2019-07-03] MEDS ORDERED: ROXANOL 20MG20 MG/ML SL (14:42)
[2019-07-03] MEDS ORDERED: ATIVAN 1MG T1 MG/TAB PO (14:42)
--- NOTE | 2019-07-03 15:19 | NUR ---
report called to Elysia renee [facility] @ [id number]. pt dressed in own clothes and awaiting transportation
--- NOTE | 2019-07-03 16:44 | NUR ---
Rosa, Financial Counselor completed Medicaid Jarrod and sent confirmation. JUANITO faxed confirmation to Hemal at [facility] who advised they are good to accept today. JUANITO spoke with Avni at [facility] who advised they can also accept patient today. JUANITO contacted Festus, Guardian who is in agreement with discharge to [facility] today. Transport time was set for 1530 and time was provided to RN, Carli. JUANITO met with patient to provide update on discharge. JUANITO faxed discharge orders, DNR order, and COVID19 assessment to [facility] and [facility]. JUANITO notified Dunia of [facility], [facility], and [facility] of discharge and thanked them for reviewing referral. JUANITO notified energy attorneyWalker of discharge. No additional needs at this time.
== END 2019-07-03 15:40 | disposition hospice, inpatient (51) | DRG 884 ==
LOC: COL.ER 10:37 → MEDICAL 14:48
PROVIDERS: Emergency Medicine; Physician Assistant; ADMIT Student in an Organized Health Care Education/Training Program
DX: F03.90 Unspecified dementia, unspecified severity, without behavioral disturbance, psychotic disturbance, mood disturbance, and anxiety (principal); C34.01 Malignant neoplasm of right main bronchus; I82.402 Acute embolism and thrombosis of unspecified deep veins of left lower extremity; C79.72 Secondary malignant neoplasm of left adrenal gland; E44.0 Moderate protein-calorie malnutrition; J96.11 Chronic respiratory failure with hypoxia; J44.9 Chronic obstructive pulmonary disease, unspecified; Z51.5 Encounter for palliative care; Z87.891 Personal history of nicotine dependence; E87.5 Hyperkalemia; I27.20 Pulmonary hypertension, unspecified; B19.20 Unspecified viral hepatitis C without hepatic coma; R53.81 Other malaise
CPT/HCPCS: 99231-AI; 99232-AI; 99239; G0378; G0463; J7030; Q9967